=== PATIENT | male | born 1985 | race Caucasian/White ===

== ENCOUNTER 2019-12-15 05:35 | Day surgery (SDC) | payer OTHER ==
--- NOTE | 2019-12-10 22:01 | EKG REPORT ---
SEVERITY:- NORMAL ECG - SINUS RHYTHM : Confirmed by: Nadege Garcia MD 10-Dec-2019 22:00:56
[~2019-12-15 05:35] MED LIST: ACETAMINOPHEN 325 MG TABLET ONE; ACETAMINOPHEN 325 MG TABLET PO PRN; IBUPROFEN 800 MG in NORMAL SALINE 250 ML IV PRN; LACTATED RINGERS 1000 ML IV PRN; LIDOCAINE 0.5% INJ-PF (5 MG/ML) 50 ML SDV SUBCUT PRN; METRONIDAZOLE 500 MG/NS RTU 500 MG/100 ML RTUPB IV ONE; METRONIDAZOLE 500 MG/NS RTU 500 MG/100 ML RTUPB IV PRN
[2019-12-15] MEDS ORDERED: LIDOCAINE 0.5% INJ-PF (5 MG/ML) 50 ML SDV ONE (06:16)
[2019-12-15] MEDS ORDERED: MIDAZOLAM 2 MG/2 ML INJ ONE (06:17)
[2019-12-15] MEDS ORDERED: ONDANSETRON HCL INJ/PF 4 MG/2 ML SDV ONE (06:17)
[2019-12-15] MEDS ORDERED: FENTANYL CITRATE INJ/PF 100 MCG/2 ML AMPUL ONE (06:17)
[2019-12-15] MEDS ORDERED: PROPOFOL INJ 200 MG/20 ML VIAL IV ONE (06:18)
[2019-12-15] MEDS ORDERED: BUPIVACAINE INJ/PF LIPOSOME/PF 266 MG/20 ML SDV ONE (07:17)
[2019-12-15] MEDS ORDERED: LIDOCAINE 2% JELLY 30 ML TUBE ONE (07:17)
[2019-12-15] MEDS ORDERED: BACITRACIN ZINC OINTMENT 15 GM ONE (07:17)
[2019-12-15] MEDS ORDERED: MORPHINE SULFATE 10 MG/ML INJ IV PRN (07:56)
[2019-12-15] MEDS ORDERED: PROMETHAZINE HCL INJ 25 MG/1 ML VIAL IV PRN ×2 (07:56)
[2019-12-15] MEDS ORDERED: MEPERIDINE HCL/PF INJ 25 MG/1 ML DISP.SYRIN IV PRN (07:56)
[2019-12-15] MEDS ORDERED: FENTANYL CITRATE INJ/PF 100 MCG/2 ML AMPUL IV PRN ×3 (07:56)
[2019-12-15] MEDS ORDERED: ONDANSETRON HCL INJ/PF 4 MG/2 ML SDV IV PRN (07:56)
[2019-12-15] MEDS ORDERED: DIPHENHYDRAMINE HCL 50 MG/ML VIAL IV PRN (07:56)
--- NOTE | 2019-12-15 08:30 | Discharge Summary ---
Discharge Summary (SDC) - Discharge Final Diagnosis: inflammed cyst of perineum Date of Surgery: 12/15/19 Discharge Date: 12/15/19 Condition: Stable Forms: ASU Anesthesia D/C Instruction, Return to Work, Discharge POC-Surgical Service Treatment or Instructions: Discharge home. Diet as tolerated. Activity: Nonstrenuous. Wash incision twice per day with soap and water and after bowel movements. Mcdonald 5/325 mg p.o. every 6 hours as needed for pain. Stool softeners p.o. twice daily while taking pain medicine. Fiber supplement p.o. twice daily. Follow-up with [facility] in 7 to 10 days. Prescriptions: Hydrocodone/Acetaminophen [Mcdonald 5-325 mg Tablet] 1 tab PO Q6HP PRN #15 tablet PRN Reason: For Pain Referrals: RIP WINKLER MD [ACTIVE STAFF] - 12/23/19 8:00 am Discharge Diet: As Tolerated Respiratory Treatments at Home: Deep Breathing/Coughing, Incentive Spirometer Discharge Activity: Balance Activity w/Rest Home Care Assistance: None Needed Report the Following to Your Physician Immediately: Shortness of Breath, Nausea, Vomiting, Increase in Pain, Fever over 101 Degrees, Unusual Bleeding
[2019-12-15] MEDS ORDERED: HYDROCODONE/ACETAMINOPHEN 5-325 MG TABLET ONE (08:56)
[2019-12-15] MEDS ORDERED: HYDROCODONE/ACETAMINOPHEN 5-325 MG TABLET PO PRN (09:00)
[2019-12-15 10:42] VITALS: BP 131/77
[2019-12-15] MEDS ORDERED: SUCCINYLCHOLINE CHLORIDE INJ 200 MG/10 ML VIAL ONE (13:22)
--- NOTE | 2019-12-16 20:43 | Operative Report ---
Nonrecallable Operative Report DATE OF SURGERY: 12/15/19 PREOPERATIVE DIAGNOSIS: inflammed perineal lesion POSTOPERATIVE DIAGNOSIS: inflammed perineal cyst, without extension into the rectum OPERATION: 1. Excision of a 2.5 cm inflamed perineal cystic lesion. 2. Rectal exam under anesthesia SURGEON: RIP WAN BRICKLAYER SUPERVISOR: ELHAM MCKEON ANESTHESIA: GA TISSUE REMOVED OR ALTERED: 2.5 cm perineal cystic lesion. COMPLICATIONS: None apparent ESTIMATED BLOOD LOSS: minimal PROCEDURE: Drains/implants: None. Procedure in detail: After informed consent was obtained, the patient was brought to the operating room and laid in the prone jackknife position. The area of the anus and rectum were prepped and draped in a normal sterile fashion. Exparel was used to create an anal block. The rectum was then inspected. A Hill-Langley retractor was inserted into the rectum. No obvious internal fistula opening could be identified. Once this was confirmed, attention was turned to the tender, indurated area of the right perineum. An elliptical incision was created around the subcutaneous lesion. A large amount of inflammatory tissue, consistent with an inflamed sebaceous cyst, was encountered. The area was excised completely. The excised area measured 2.5 cm in maximal diameter. The subcutaneous tissues were then closed using 3-0 Vicryl suture in interrupted fashion. The skin was left open, due to the large amount of inflammatory tissue. No obvious fistula tract could be identified. A dressing was then placed, and the procedure was concluded. All sponge, instrument, and needle counts were correct x2. Condition: Stable. Elham Mckeon PA-C was scrubbed and present the entirety of the procedure. She assisted with all portions of the procedure including opening of the skin, removal of the cyst, closure of the subcutaneous tissues, placement of the dressing.
== END 2019-12-15 09:55 | disposition home or self-care (01) ==
LOC: OROUT 05:35
PROVIDERS: ATTEND Surgery
DX: L72.0 Epidermal cyst (principal); Z03.818 Encounter for observation for suspected exposure to other biological agents ruled out
CPT/HCPCS: 93005; 87635; 88304 ×2; 93010; 00902; 11423; J2250; J3010; J3490 ×2; J0330; J2405; J7050; J2704; C9290; J1741; C9803; 902